=== PATIENT | female | born 1935 | race American Indian/Alaskan Native ===

== ENCOUNTER 2018-02-25 14:11 | Outpatient (CLI) | payer MEDICARE ==
--- NOTE | 2018-02-25 16:31 | Ultrasound Report ---
LEFT BREAST ULTRASOUND: 02/25/18 14:11:00 CLINICAL: Clear left nipple discharge COMPARISON: 02/11/18 mammogram FINDINGS: Ultrasound of the left breast(including all four quadrants and the retroareolar area) was performed and demonstrated no mass, cyst or shadowing. Mild retroareolar duct ectasia at 3 o'clock. However, no intraductal mass identified. IMPRESSION: Mild retroareolar duct ectasia and otherwise negative ultrasound. BI-RADS 2 - - Benign RECOMMENDATION: Clinical followup.
== END 2018-02-25 14:12 | disposition home or self-care (01) ==
LOC: SPVWC 14:11
PROVIDERS: ATTEND Surgery
DX: N60.42 Mammary duct ectasia of left breast (principal)